=== PATIENT | male | born 1970 | race Caucasian/White ===

== ENCOUNTER 2018-08-21 12:38 | Emergency (ER) | payer OTHER ==
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
[2018-08-21] MEDS ORDERED: ACETAMINOPHEN 325 MG TABLET PO ONE (13:51)
[2018-08-21] MEDS ORDERED: ACETAMINOPHEN 325 MG TABLET ONE (14:09)
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
[2018-08-21 15:04] VITALS: BP 155/88
== END 2018-08-21 15:04 | disposition home or self-care (01) ==
LOC: ER 12:38
DX: S40.012A Contusion of left shoulder, initial encounter (principal); S29.012A Strain of muscle and tendon of back wall of thorax, initial encounter; R51 Headache; V87.7XXA Person injured in collision between other specified motor vehicles (traffic), initial encounter; F17.200 Nicotine dependence, unspecified, uncomplicated
CPT/HCPCS: 70450; 72070; 72125; 99284

== ENCOUNTER 2018-09-01 12:30 | Emergency (ER) | payer OTHER ==
[2018-09-01] MEDS ORDERED: LIDOCAINE 1% INJ-PF (10 MG/ML) 30 ML SDV INJ ONE (13:52)
[2018-09-01] MEDS ORDERED: HYDROCODONE/ACETAMINOPHEN 5-325 MG TABLET PO ONE (13:55)
[2018-09-01] MEDS ORDERED: DIPH/PERTUSS(ACELL)/TETANUS VAC/PF 0.5 ML SYR (>=10YO) IM ONE (14:10)
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
--- NOTE | 2018-09-01 15:47 | ER Document Report ---
ED Extremity Problem, Lower - General Chief Complaint: Laceration Stated Complaint: LEFT KNEE LACERATION Time Seen by Provider: 09/01/18 13:48 Mode of Arrival: Ambulatory Information source: Patient Notes: Patient is a 47-year-old male comes emergency room with a complaint of a laceration to his left knee. Patient states he was using his chainsaw and he got tangled up he fell as he felt that the chainsaw nicked the top of his left kneecap. Patient states that the wound quit bleeding and it was a gas and air so he came to ER. He could not tell me when his last tetanus shot was so we gave him a tetanus shot today. He has ambulation with the knee and he has flexion and extension with the knee. Patient has a history of hypertension but no other medical problems. He smokes a pack of cigarettes a day. TRAVEL OUTSIDE OF THE [place] IN LAST 30 DAYS: No - HPI Patient complains to provider of: Injury, Pain Location: Knee Occurred: Just prior to arrival Where: Home Onset/Duration: Sudden Quality of pain: Sharp, Stabbing, Throbbing Severity: Moderate Pain Level: 3 Context: Laceration Recent injury: Yes Exacerbated by: Movement, Walking Relieved by: Elevation, Rest - Related Data Allergies/Adverse Reactions: tramadol Allergy (Verified 08/21/18 12:39) Past Medical History - General Information source: Patient - Social History Smoking Status: Current Every Day Smoker Cigarette use (# per day): Yes - 1 pack a day Chew tobacco use (# tins/day): No Smoking Education Provided: No Frequency of alcohol use: Rare Drug Abuse: None Lives with: Family Family History: Reviewed & Not Pertinent Patient has suicidal ideation: No Patient has homicidal ideation: No - Past Medical History Cardiac Medical History: Reports: Hx Hypertension Neurological Medical History: Reports: Hx Migraine - headaches Renal/ Medical History: Denies: Hx Peritoneal Dialysis Musculoskeletal Medical History: Reports Hx Arthritis Past Surgical History: Reports: Hx Oral Surgery - wisdom teeth, Hx Orthopedic Surgery - carpal tunnel, ulnar tunnel Review of Systems - Review of Systems Constitutional: No symptoms reported EENT: No symptoms reported Cardiovascular: No symptoms reported Respiratory: No symptoms reported Gastrointestinal: No symptoms reported Genitourinary: No symptoms reported Male Genitourinary: No symptoms reported Musculoskeletal: No symptoms reported Skin: Lesions, Other - Laceration left knee Hematologic/Lymphatic: No symptoms reported Neurological/Psychological: No symptoms reported -: Yes All other systems reviewed and negative Physical Exam - Vital signs Vitals: Temp Pulse Resp BP Pulse Ox 98.3 F 102 H 15 130/78 H 97 09/01/18 12:44 09/01/18 12:44 09/01/18 12:44 09/01/18 12:44 09/01/18 12:44 Interpretation: Hypertensive, Tachycardic - Notes Notes: Well-nourished well-developed 47-year-old male who is in no apparent distress but is definitely uncomfortable. - General General appearance: Alert - HEENT Head: Normocephalic, Atraumatic Eyes: Normal - Respiratory Respiratory status: No respiratory distress Chest status: Nontender Breath sounds: Normal. No: Productive cough, Rales, Rhonchi, Stridor, Wheezing Chest palpation: Normal - Cardiovascular Rhythm: Regular Heart sounds: Normal auscultation Murmur: No - Extremities General upper extremity: Normal inspection, Nontender, Normal ROM, Normal strength General lower extremity: Tender, Normal temperature, Normal weight bearing. No : Normal ROM, Normal strength, Faisal's sign Knee: Tender, Laceration, Pain with ROM, Patellar tendon intact, Other - Examination of patient's left knee shows on physical examination a jagged laceration right across the middle of the patella. I had patient bend and straighten his knee and he did so without a problem. Therefore the patella tendon is still intact. On first visual inspection it does not appear to be any type of involvement of the patella tendon. Patient has good popliteal pulse. He has also good distal pulses with a 2+ dorsalis pedal pulse. Patient has good color distally to the wound.. No: Dislocation, Drawer's test instability, Ecchymosis, Instability, Joint effusion, Laxity with valgus stress , Laxity with varus stress, Popliteal fossa tender, Tender joint line, Unable to bear weight Course - Re-evaluation Re-evalutation: 09/01/18 15:47 During the course of the suturing patient had a vasovagal event. The patient healthcare recruiter did an excellent job of handling that matter while he stayed sterile. Patient eventually revived without any complications. The vasovagal probably related to not eating watching me so his knee up and taking hydrocodone which finally kicked in. When I left the room patient is awake alert and oriented and jovial. - Vital Signs Vital signs: Temp Pulse Resp BP Pulse Ox 98.3 F 102 H 15 130/78 H 97 09/01/18 12:44 09/01/18 12:44 09/01/18 12:44 09/01/18 12:44 09/01/18 12:44 Procedures - Immobilization Left Knee Pre-Proc Neuro Vasc Exam: Normal Immobilizer type: Knee immobilizer Performed by: PCT Post-Proc Neuro Vasc Exam: Normal Alignment checked and good: Yes Notes: 09/01/18 15:52 I checked after the PCT placed in the immobilizer and it was in good position with the patient having good dorsalis pedal pulse after application. - Laceration/Wound Repair Left Knee Time completed: 15:48 Wound length (cm): 4.0 Wound's Depth, Shape: Into muscle, Irregular Laceration pre-procedure: Sterile PPE donned, Betadine prep applied, Sterile drapes applied, Other - After anesthetizing the area and using sterile technique to do so I also used a liter of normal saline mixed with Betadine to flush extensively the wound. And this was after manually scrubbing the area multiple times with Hibiclens. Anesthetic type: 1% Lidocaine Volume Anesthetic (mLs): 10 Wound explored: No foreign body removed, Contaminated Irrigated w/ Saline (mLs): 1,000 Wound Debrided: Moderate - I did extensive margin repair secondary to the jaggedness of the laceration from the chains. I was able to get linear straight skin lines of equal distance so that blended together with appear much nicer. This took approximately an additional 25-30 minutes to get it just right. Wound Repaired With: Sutures Suture Size/Type: 3:0, Prolene Number of Sutures: 6 Layer Closure?: No Post-procedure wound care: Sterile dressing applied, Splint applied Post-procedure NV exam normal: Yes Complications: Yes - Just a vasovagal event while I was suturing him up. Notes: 09/01/18 15:51 Patient stated he came out of the vasovagal event without any problems he was kind of embarrassed that it happened to him since he was in the . It is a combination of him not eating all day watching me cut his skin and meet in order to make a nice clean cut and repair it. And then the hydrocodone kicked in on an empty stomach and it all came together one time. Patient only was having a difficult time with that for approximately 2-3 minutes and then was back to his normal self. Discharge - Discharge Clinical Impression: Laceration of knee, left Qualifiers: Encounter type: initial encounter Qualified Code(s): S81.012A - Laceration without foreign body, left knee, initial encounter Condition: Stable Disposition: HOME, SELF-CARE Instructions: Antibiotic Ointment Protection ([facility]), Laceration Care ([facility]), Oral Narcotic Medication ([facility]), Prophylactic Antibiotic ([facility]), Tetanus Immunization Given ([facility]) Additional Instructions: As we have talked during my suturing any up. You must baby this because it is in the joint space and any amount of pressure could pop the stitches out. As while wearing a knee immobilizer for the next 3-4 days. I would recommend even sleeping in it but loosening it up. Please do not add an Evan wrap to go to bed this circulation. I am adding antibiotics to you but monitor the wound closely and if it any sign of infection or you have any concerns return to ER before its time to have the sutures removed. In a place like the knee that moves so much we will leave the sutures anywhere between 10 and 12 days. You may come back anytime sooner if you have any questions or concerns or return on 10-12 days of force to remove the stitches or you go to your primary care for him to do so 2. Take all of the antibiotics please and again return to ER if you have any concerns or problems. Prescriptions: Cephalexin Monohydrate [Keflex 500 mg Capsule] 500 mg PO Q6H 5 Days #1 capsule Hydrocodone/Acetaminophen [[place] 5-325 mg Tablet] 1 tab PO Q4 #10 tablet Referrals: MARIA A ÁLVAREZ NP [Primary Care Provider] - Follow up as needed
[2018-09-01 16:10] VITALS: BP 142/79
== END 2018-09-01 16:14 | disposition home or self-care (01) ==
LOC: ER 12:30
PROC: 0HQLXZZ Repair Left Lower Leg Skin, External Approach (ICD-10-PCS; principal; 2018-09-01)
DX: S81.012A Laceration without foreign body, left knee, initial encounter (principal); R55 Syncope and collapse; F17.210 Nicotine dependence, cigarettes, uncomplicated; I10 Essential (primary) hypertension; W29.3XXA Contact with powered garden and outdoor hand tools and machinery, initial encounter; Y92.007 Garden or yard of unspecified non-institutional (private) residence as the place of occurrence of the external cause; Z23 Encounter for immunization
CPT/HCPCS: 99283; 90471; 73562; 90715; 12002; L1830; J3490

== ENCOUNTER 2019-08-22 22:57 | Emergency (ER) | payer OTHER ==
[2019-08-22 23:15] VITALS: BP 142/81
[2019-08-23] MEDS ORDERED: TETRACAINE HCL 0.5% OPH SOLN 4 ML OD ONE (00:38)
[2019-08-23] MEDS ORDERED: IBUPROFEN 800 MG TABLET PO ONE (00:38)
--- NOTE | 2019-08-23 00:40 | ER Document Report ---
ED Medical Screen (RME) - General Chief Complaint: Foreign Body in Eye Stated Complaint: EYE PAIN Time Seen by Provider: 08/23/19 00:35 Primary Care Provider: MARIA A ÁLVAREZ NP [Primary Care Provider] - Follow up as needed Notes: Patient is a 48-year-old male presents to the emergency department with a foreign body sensation to the right eye. States he did have safety glasses on today when he was using a circular saw to chop wood. States he feels as though something got into his right eye. Patient complains of generalized pain and excessive tearing. EYES: Pupils equal, round, and reactive to light. Extraocular movements intact. Slight swelling noted to the right upper lid. Minor conjunctival injection noted right eye. I have greeted and performed a rapid initial assessment of this patient. A com prehensive ED assessment and evaluation of the patient, analysis of test results and completion of the medical decision making process will be conducted by additional ED providers. I have specifically instructed the patient or family members with the patient to immediately return to any nursing staff should anything change in the patient's condition or with their chief complaint. This medical record was dictated with voice recognizing software. There may be grammatical, syntax errors that are unintended. TRAVEL OUTSIDE OF THE [place] IN LAST 30 DAYS: No - Related Data Allergies/Adverse Reactions: tramadol Allergy (Verified 08/21/18 12:39) Past Medical History - Past Medical History Cardiac Medical History: Reports: Hx Hypertension Neurological Medical History: Reports: Hx Migraine - headaches Renal/ Medical History: Denies: Hx Peritoneal Dialysis Musculoskeltal Medical History: Reports Hx Arthritis Past Surgical History: Reports: Hx Oral Surgery - wisdom teeth, Hx Orthopedic Surgery - carpal tunnel, ulnar tunnel Physical Exam - Vital signs Vitals: Temp Pulse Resp BP Pulse Ox 97.5 F 80 16 142/81 H 98 08/22/19 23:14 08/22/19 23:14 08/22/19 23:14 08/22/19 23:14 08/22/19 23:14 Course - Vital Signs Vital signs: Temp Pulse Resp BP Pulse Ox 97.5 F 80 16 142/81 H 98 08/22/19 23:14 08/22/19 23:14 08/22/19 23:14 08/22/19 23:14 08/22/19 23:14 Doctor's Discharge - Discharge Referrals: MARIA A ÁLVAREZ, MEDICAL RECORD CODER [Primary Care Provider] - Follow up as needed
[2019-08-23] MEDS ORDERED: HYDROCODONE/ACETAMINOPHEN 5-325 MG (6 TAB/ER DISP) PO PRN (02:49)
[2019-08-23] MEDS ORDERED: POLYMYXIN B SULFATE/TMP OPH SOLN (10 ML/ER DISP) OD PRN (02:50)
--- NOTE | 2019-08-23 02:52 | ER Document Report ---
ED ENT - General Chief Complaint: Foreign Body in Eye Stated Complaint: EYE PAIN Time Seen by Provider: 08/23/19 00:35 Primary Care Provider: JANICE BEATTY MD [ACTIVE STAFF] - 08/25/19 Notes: Patient is a 48-year-old male that comes emergency department for chief complaint of foreign body sensation to the right eye. He states that he was using a circular saw to chop wood, he was wearing safety glasses, however he st ates he felt like something got underneath the glasses and got into his eye. He states he checked his eye and he did not see a foreign body. He has been rubbing at the eye and there is some irritation and swelling to the upper eyelid now. He wears glasses but he does not wear contacts. He complains of generalized pain, extra tears, and foreign body sensation but he denies loss of vision, or any other symptoms at this time. TRAVEL OUTSIDE OF THE [place] IN LAST 30 DAYS: No - Related Data Allergies/Adverse Reactions: tramadol Allergy (Verified 08/21/18 12:39) Past Medical History - General Information source: Patient - Social History Smoking Status: Never Smoker Frequency of alcohol use: None Drug Abuse: None Lives with: Family Family History: Reviewed & Not Pertinent Patient has suicidal ideation: No Patient has homicidal ideation: No - Past Medical History Cardiac Medical History: Reports: Hx Hypertension Neurological Medical History: Reports: Hx Migraine - headaches Renal/ Medical History: Denies: Hx Peritoneal Dialysis Musculoskeletal Medical History: Reports Hx Arthritis Past Surgical History: Reports: Hx Oral Surgery - wisdom teeth, Hx Orthopedic Surgery - carpal tunnel, ulnar tunnel - Immunizations Immunizations up to date: Yes Hx Diphtheria, Pertussis, Tetanus Vaccination: Yes Review of Systems - Review of Systems Constitutional: No symptoms reported EENT: See HPI Cardiovascular: No symptoms reported Respiratory: No symptoms reported Gastrointestinal: No symptoms reported Genitourinary: No symptoms reported Male Genitourinary: No symptoms reported Musculoskeletal: No symptoms reported Skin: No symptoms reported Hematologic/Lymphatic: No symptoms reported Neurological/Psychological: No symptoms reported Physical Exam - Vital signs Vitals: Temp Pulse Resp BP Pulse Ox 97.5 F 80 16 142/81 H 98 08/22/19 23:14 08/22/19 23:14 08/22/19 23:14 08/22/19 23:14 09/27/19 23:14 - Notes Notes: GENERAL: Alert, interacts well. No acute distress. HEAD: Normocephalic, atraumatic. EYES: Pupils equal, round, and reactive to light. Extraocular movements intact. There is mild irritation with minimal edema to the right upper eyelid, lower eyelid unremarkable. There is mild injection to the sclera of the right eye as well, on fluorescein examination there appears to be a tiny corneal abrasion at approximately the 9 o'clock position, there is no noted foreign body, negative Yaneli sign, unremarkable eye examination otherwise. ENT: Oral mucosa moist, tongue midline. Oropharynx unremarkable. Airway patent. Nares patent, no nasal septal hematoma LUNGS: Clear to auscultation bilaterally, no wheezes, rales, or rhonchi. No respiratory distress. HEART: Regular rate and rhythm. No murmur ABDOMEN: Soft, non-tender. Non-distended. Bowel sounds present in all 4 quadrants. GENITOURINARY: Deferred EXTREMITIES: Moves all 4 extremities spontaneously. BACK: no cervical, thoracic, lumbar midline tenderness. No saddle anesthesia, normal distal neurovascular exam. NEUROLOGICAL: Alert and oriented x3. Normal speech. Cranial nerves II through XII grossly intact. PSYCH: Normal affect, normal mood. SKIN: Warm, dry, normal turgor. No rashes or lesions noted. Course - Re-evaluation Re-evalutation: Physical examination is consistent with a tiny corneal abrasion but no other concerning findings. Provided with eyedrops to go home with from here, discussed ophthalmology follow-up, return precautions in detail. Patient states understanding and agreement. - Vital Signs Vital signs: Temp Pulse Resp BP Pulse Ox 97.5 F 80 16 142/81 H 98 08/22/19 23:14 08/22/19 23:14 08/22/19 23:14 08/22/19 23:14 08/22/19 23:14 Discharge - Discharge Clinical Impression: Pain, eye, right Corneal abrasion Qualifiers: Encounter type: initial encounter Laterality: right Qualified Code(s): S05.01XA - Injury of conjunctiva and corneal abrasion without foreign body, right eye, initial encounter Condition: Stable Disposition: HOME, SELF-CARE Additional Instructions: Your evaluation is consistent with a small corneal abrasion but no foreign body or other concerning finding is noted. This should heal rapidly, also use the Polytrim eyedrops (1 drop every 6 hours x5 days). Take the pain medication if needed especially to sleep. Follow-up with ophthalmology referral for reevaluation return for any concerning symptoms including swelling, discolored discharge, loss of vision, severe worsening pain, or any other concerning symptoms.. Referrals: JANICE BEATTY MD [ACTIVE STAFF] - 08/25/19
== END 2019-08-23 03:07 | disposition home or self-care (01) ==
LOC: ER 22:57
DX: S05.01XA Injury of conjunctiva and corneal abrasion without foreign body, right eye, initial encounter (principal); H57.11 Ocular pain, right eye; X58.XXXA Exposure to other specified factors, initial encounter; Y93.89 Activity, other specified; I10 Essential (primary) hypertension
CPT/HCPCS: J3490 ×2; 99283

== ENCOUNTER → 2020-02-06 | Outpatient (CLI) | payer OTHER ==
--- NOTE | 2020-02-06 10:33 | RADIOLOGY REPORT (SQ) ---
EXAM DESCRIPTION: MRI RT UPPER JOINT WITHOUT COMPLETED DATE/TIME: 02/06/2020 8:34 am REASON FOR STUDY: UNSPECIFIED ROTATOR CUFF TEAR OR RUPTURE OF RIGHT SHOULDER (M75.101) M75.101 UNSP ROTATR-CUFF TEAR/RUPTR OF RIGHT SHOULDER, NOT T COMPARISON: None. TECHNIQUE: Right shoulder images acquired and stored on PACS. Multiplanar imaging to include fat sen sitive sequences such as T1, water sensitive sequences such as FST2/STIR, cartilage sensitive sequenc es such as FSPD/gradient-echo sequences. LIMITATIONS: None. FINDINGS: BONE MARROW AND CORTEX: No worrisome bone lesions or marrow replacement. No occult fractur es. JOINT OR BURSAL EFFUSION: Trace fluid. GLENO-HUMERAL ARTICULATION: No focal chondral lesions. No subluxation or dislocation. ACROMION AND AC JOINT: Mild degenerative facet overgrowth. Subacromial space preserved. ROTATOR CUFF AND INTERVAL: Thinning of the distal cuff related to partial tear and fraying along the bursal and articular surfaces. Probable tear extending into the footprint of the supraspinatus inser tion on the greater tuberosity. No evidence of atrophy. No full-thickness breech detected. Scar in the rotator interval. LABRUM AND BICEPS LABRAL COMPLEX: Macerated appearance, extensive tear of the superior labrum to in clude the biceps anchor and proximal tendon. There is enlargement and probable stump of remaining bi ceps tissue. Biceps tendon not identified in normal location in the scratch the biceps not seen with in the groove. Presumably retracted. REMAINDER OF LABRUM AND IGHL : Relatively intact although there is generalized blunting throughout th e posterior labrum which is probably degenerative. PERIARTICULAR AND ADJACENT SOFT TISSUES: No masses or abnormal nodes. OTHER: No other significant finding. IMPRESSION: 1. Cuff disease as above, partial thickness tears. No full-thickness breech. 2. Extensive superior labral tear with biceps involvement, presumed biceps disruption and retraction. TECHNICAL DOCUMENTATION: JOB ID: [id number] 2010 [employer]- All Rights Reserved Reading location - IP/workstation name: [email or web address]
== END ==
LOC: RAD 07:31
PROVIDERS: ATTEND Orthopaedic Surgery Sports Medicine
DX: M75.101 Unspecified rotator cuff tear or rupture of right shoulder, not specified as traumatic (principal)

== ENCOUNTER → 2020-05-26 | Outpatient (CLI) | payer OTHER ==
[2020-05-26 10:39] LABS: BLOOD UREA NITROGEN 14 mg/dL (7-20); CALCIUM 9.5 mg/dL (8.4-10.2); GLUCOSE 136 mg/dL (75-110)
[2020-05-26 10:40] LABS: ALKALINE PHOSPHATASE 108 U/L (38-126); ANION GAP 5 (5-19); ASPARTATE AMINO TRANSFERASE 26 U/L (17-59); BILIRUBIN,TOTAL 0.2 mg/dL (0.2-1.3); CARBON DIOXIDE 28 mmol/L (22-30); CHLORIDE 104 mmol/L (98-107); POTASSIUM 4.2 mmol/L (3.6-5.0); TOTAL PROTEIN 6.6 g/dL (6.3-8.2)
[2020-05-26 10:57] LABS: ABSOLUTE BASOPHILS # (AUTO) 0.1 10^3/uL (0.0-0.2); ABSOLUTE EOSINOPHILS # (AUTO) 0.4 10^3/uL (0.0-0.6); ABSOLUTE LYMPHOCYTES (AUTO) 2.8 10^3/uL (0.5-4.7); ABSOLUTE MONOCYTES (AUTO) 0.8 10^3/uL (0.1-1.4); ABSOLUTE NEUT (AUTO) 5.6 10^3/uL (1.7-8.2); BASOPHILS % (AUTO) 0.9 % (0-2); EOSINOPHILS % (AUTO) 4.2 % (0-6); HEMATOCRIT 40.7 % (37.9-51.0); LYMPHOCYTES % (AUTO) 29.1 % (13-45); MEAN CORPUSCULAR HEMOGLOBIN 33.4 pg (27.0-33.4); MEAN CORPUSCULAR HGB CONC 34.4 g/dL (32.0-36.0); MEAN CORPUSCULAR VOLUME 97 fl (80-97); PLATELET COUNT 335 10^3/uL (150-450); RED CELL DISTRIBUTION WIDTH 13.4 % (11.5-14.0); SEGMENTED NEUTROPHILS % (AUTO) 57.8 % (42-78); TOTAL CELLS COUNTED % (AUTO) 100 %; WHITE BLOOD COUNT 9.7 10^3/uL (4.0-10.5)
== END ==
LOC: OD 09:36
PROVIDERS: ATTEND Specialist/Technologist Athletic Trainer
DX: Z11.2 Encounter for screening for other bacterial diseases (principal); I10 Essential (primary) hypertension
CPT/HCPCS: 36415; 80053; 85025; 87070